=== PATIENT | female | born 1950 | race Caucasian/White ===

== ENCOUNTER → 2017-07-26 | Outpatient (CLI) | payer MEDICARE ==
[~2017-07-26] MED LIST: CITA10TA GT; GLIM2TAB PO; MIRT15TA6 PO; OMEG1CAP53 PO; PREN-115 PO
--- NOTE | 2017-07-26 14:53 | Diagnostic Imaging Report ---
EXAMINATION: Bilateral diagnostic mammogram with tomographic images also performed. The current study was also evaluated with a Computer Aided Detection (CAD) system. INDICATION: Left breast cyst. FINDINGS: The breasts are composed of heterogeneously dense parenchyma which may decrease mammographic sensitivity. A lateral left breast biopsy clip is again seen. There is a mass with smooth margins in the outer aspect of the left breast. This is stable from multiple prior exams with no adverse development. Allowing for technique and positional differences, no suspicious change is seen. IMPRESSION: Dense breasts with no definite change. ACR BI-RADS Category 2: Benign findings. Result letter will be mailed to the patient. Note: At least 10% of breast cancer is not imaged by mammography. Dictated by: Dictated on workstation # [id number]
== END ==
LOC: RAD 12:47
PROVIDERS: ATTEND Nurse Practitioner Family
DX: N60.02 Solitary cyst of left breast (principal)
CPT/HCPCS: 77066

== ENCOUNTER → 2018-09-26 | Outpatient (CLI) | payer MEDICARE ==
--- NOTE | 2018-09-26 20:19 | Diagnostic Imaging Report ---
INDICATION: Screening. EXAMINATION: Digital mammogram bilateral screening with 3-D tomosynthesis. This study was compared to prior exams of 07/26/2017, 05/25/2016 and 05/06/2015. At this time, there are no current complaints. The current study was also evaluated with a Computer Aided Detection (CAD) system. FINDINGS: The fibroglandular tissue in both breasts is heterogeneously dense. This does limit the sensitivity of this exam. Overall, there does not appear to have been any significant change when compared to the prior study. No primary or secondary sign of malignancy is noted. The stereotactic clip in the left breast seen previously is again evident and no different. IMPRESSION: There is no radiographic evidence for malignancy. ACR BI-RADS Category 1: Negative. Result letter will be mailed to the patient. Note: At least 10% of breast cancer is not imaged by mammography. Dictated by: Dictated on workstation # [id number]
== END ==
LOC: RAD 07:55
PROVIDERS: ATTEND Nurse Practitioner Family
DX: Z12.31 Encounter for screening mammogram for malignant neoplasm of breast (principal)
CPT/HCPCS: 77067

== ENCOUNTER → 2019-12-05 | Outpatient (CLI) | payer MEDICARE ==
--- NOTE | 2019-12-05 14:31 | Diagnostic Imaging Report ---
INDICATION: Screening The current study was also evaluated with a Computer Aided Detection (CAD) system. 3-D Tomographic imaging was also performed. Comparison made with prior examination of 09/26/2018, 07/26/2017, 05/25/2016. FINDINGS: The fibroglandular tissues are heterogeneously dense bilaterally. There is a focal area of marked increased parenchymal density upper outer left breast. This previously has been biopsied as there is a surgical clip in this region. There are otherwise a few scattered benign-type calcifications. There is no new dominant mass, spiculated lesion or suspicious calcification identified. Skin, nipples and axillae are unremarkable. IMPRESSION: Category 2, benign. ACR BI-RADS Category 2: Benign findings. Result letter will be mailed to the patient. Note: At least 10% of breast cancer is not imaged by mammography. Dictated by: Dictated on workstation # [id number]
== END ==
LOC: RAD 10:40
PROVIDERS: ATTEND Nurse Practitioner Family
DX: Z12.31 Encounter for screening mammogram for malignant neoplasm of breast (principal)
CPT/HCPCS: 77067

== ENCOUNTER 2022-07-17 05:39 | Outpatient (CLI) | payer MEDICARE ==
[~2022-07-17] VITALS: Ht 152.4 cm; Wt 41.0 kg
[2022-07-17] MEDS ORDERED: METF-397 PO (14:25)
[2022-07-17] MEDS ORDERED: MIRT-69 PO (14:25)
[2022-07-17] MEDS ORDERED: GLIM2TAB4 PO (14:25)
[2022-07-17] MEDS ORDERED: CITA40TA13 PO (14:25)
[2022-07-17] MEDS ORDERED: ROFL250T PO (14:25)
[2022-07-17] MEDS ORDERED: SIME80TA16 PO (14:25)
[2022-07-17] MEDS ORDERED: BUSP10TA95 PO (14:25)
[2022-07-17] MEDS ORDERED: FLT11013 IH (14:25)
[2022-07-17] MEDS ORDERED: SITA50TA PO (14:25)
[2022-07-17] MEDS ORDERED: ACET-2267 PO (14:25)
[2022-07-17] MEDS ORDERED: RT-ALBUINH IH (14:25)
[2022-07-17] MEDS ORDERED: FORM20VI IH (14:25)
== END 2022-07-17 14:35 | disposition home or self-care (01) ==
LOC: PREOP 05:39
PROVIDERS: ATTEND Specialist
DX: Z01.818 Encounter for other preprocedural examination (principal)

== ENCOUNTER 2022-07-24 09:37 | Day surgery (SDC) | payer MEDICARE ==
[~2022-07-24] VITALS: Ht 152.4 cm; Wt 41.0 kg
[~2022-07-24 09:37] MED LIST changes: +ACET-2267 PO; +BUSP10TA95 PO; +CITA40TA13 PO; +FLT11013 IH; +FORM20VI IH; +GLIM2TAB4 PO; +METF-397 PO; +MIRT-69 PO; +ROFL250T PO; +RT-ALBUINH IH; +SIME80TA16 PO; +SITA50TA PO
[2022-07-24] MEDS ORDERED: MIDAZOLAM 2 MG/2 ML (VERSED) VIAL ONE (09:45)
[2022-07-24] MEDS ORDERED: MOXIFLOXACIN OPHTH SOLN 5 MG/ML 0.3 ML SYRINGE OP ONE (10:00)
[2022-07-24] MEDS ORDERED: TIMOLOL MALEATE 0.5% 5 ML (TIMOPTIC) BTL OU PRN (10:00)
[2022-07-24] MEDS ORDERED: POVIDONE (BETADINE) OPHTH SOLN 5% 30 ML OP ONE (10:00)
[2022-07-24] MEDS: TETRACAINE 0.5% OPHTH SOLN 4 ML BTL (SINGLE DOSE ONLY) OU PRN ×4 (10:06→10:28)
[2022-07-24 10:15] VITALS: BP 151/82
[2022-07-24] MEDS: TROPICAMIDE 1% OPH SOLN (MYDRIACYL) 15 ML BTL OP SCH ×3 (10:15→10:28)
[2022-07-24] MEDS: PHENYLEPHRINE 10% OPHTH (NEO-SYN) 5 ML BTL OU SCH ×3 (10:15→10:28)
--- NOTE | 2022-07-24 10:19 | Ophthalmologist Pre-Op Note ---
Pre-Operative Progress Note H&P Reviewed The H&P was reviewed, patient examined and no changes noted. Date H&P Reviewed: Jul 24, 2022 Time H&P Reviewed: 10:19 Pre-Op Dx Cataract, Right Eye BRIAN LOYA MD Jul 24, 2022 10:19
--- NOTE | 2022-07-24 10:52 | Ophthalmology Operative Report ---
Cataract removal/placement IOL PREOPERATIVE DIAGNOSIS: Cataract Right Eye POSTOPERATIVE DIAGNOSIS: Cataract Right Eye PROCEDURE: Cataract removal and placement of posterior chamber implant, right eye SURGEON: Kenn Loya ANESTHESIA: Topical with sedation COMPLICATIONS: None ESTIMATED BLOOD LOSS: Minimal DESCRIPTION OF PROCEDURE: After proper informed consent was obtained, the patient, a 71 female, was taken to the Operating Room and the right eye was anesthetized with tetracaine. The right eye was then prepped and draped in the usual manner. A wire lid speculum was placed. A paracentesis was made at the left hand position. Preservative free lidocaine was injected into the anterior chamber followed by viscoelastic. A clear corneal incision was made in the temporal position. A capsulorrhexis was preformed and the central nuclear and cortical material were removed. The posterior capsule was polished and Mitch 22.0 AU00T0 IOL was placed into the capsular bag. The residual viscoelastic was aspirated and balanced saline solution was injected into the anterior chamber. Moxifloxacin was injected into the anterior chamber. The wound was checked and found to be water tight. The patient tolerated the procedure well without complications. KENN LOYA MD Jul 24, 2022 10:52
[2022-07-24 11:00] VITALS: BP 151/80
[2022-07-24] MEDS ORDERED: acetaZOLAMIDE ER 500 MG CAP (DIAMOX SEQUELS) PO ONE (11:30)
--- NOTE | 2022-07-24 14:04 | Anesthesia-General Post-Op ---
MAC Patient Condition Mental Status/LOC: Same as Preop Cardiovascular: Satisfactory Nausea/Vomiting: Absent Respiratory: Satisfactory Pain: Controlled Complications: Absent Post Op Complications Complications None Follow Up Care/Instructions Patient Instructions None needed. Anesthesiology Discharge Order Discharge Order Patient is doing well, no complaints, stable vital signs, no apparent adverse anesthesia problems. No complications reported per nursing. ROXANNE MCCULLOUGH CRNA Jul 24, 2022 14:04
== END 2022-07-24 11:00 | disposition home or self-care (01) ==
LOC: SDC 09:37
PROVIDERS: ATTEND Specialist
DX: E11.36 Type 2 diabetes mellitus with diabetic cataract (principal); H25.9 Unspecified age-related cataract; Z87.891 Personal history of nicotine dependence; Z79.84 Long term (current) use of oral hypoglycemic drugs
CPT/HCPCS: 66984; V2632

== ENCOUNTER 2022-07-31 13:23 | Outpatient (CLI) | payer MEDICARE | END 2022-07-31 14:53 | LOC: PREOP 13:23 | PROVIDERS: ATTEND Specialist | DX: Z01.818 Encounter for other preprocedural examination (principal) ==

== ENCOUNTER 2022-08-07 09:49 | Day surgery (SDC) | payer MEDICARE ==
[~2022-08-07] VITALS: Ht 152.4 cm; Wt 41.0 kg
[2022-08-07] MEDS ORDERED: TIMOLOL MALEATE 0.5% 5 ML (TIMOPTIC) BTL OU PRN (10:00)
[2022-08-07] MEDS ORDERED: MOXIFLOXACIN OPHTH SOLN 5 MG/ML 0.3 ML SYRINGE OP ONE (10:00)
[2022-08-07] MEDS ORDERED: POVIDONE (BETADINE) OPHTH SOLN 5% 30 ML OP ONE (10:00)
[2022-08-07 10:04] VITALS: BP 119/62
[2022-08-07] MEDS: TETRACAINE 0.5% OPHTH SOLN 4 ML BTL (SINGLE DOSE ONLY) OU PRN ×4 (10:04→10:23)
[2022-08-07] MEDS: PHENYLEPHRINE 10% OPHTH (NEO-SYN) 5 ML BTL OU SCH ×3 (10:11→10:23)
[2022-08-07] MEDS: TROPICAMIDE 1% OPH SOLN (MYDRIACYL) 15 ML BTL OP SCH ×3 (10:11→10:23)
[2022-08-07] MEDS ORDERED: MIDAZOLAM 2 MG/2 ML (VERSED) VIAL ONE (10:24)
--- NOTE | 2022-08-07 10:41 | Ophthalmologist Pre-Op Note ---
Pre-Operative Progress Note H&P Reviewed The H&P was reviewed, patient examined and no changes noted. Date H&P Reviewed: Aug 07, 2022 Time H&P Reviewed: 10:41 Pre-Op Dx Cataract, Left Eye BRIAN LOYA MD Aug 07, 2022 10:41
--- NOTE | 2022-08-07 11:00 | Ophthalmology Operative Report ---
Cataract removal/placement IOL PREOPERATIVE DIAGNOSIS: Cataract Left Eye POSTOPERATIVE DIAGNOSIS: Cataract Left Eye PROCEDURE: Cataract removal and placement of posterior chamber implant, left eye SURGEON: Kenn Loya ANESTHESIA: Topical with sedation COMPLICATIONS: None ESTIMATED BLOOD LOSS: Minimal DESCRIPTION OF PROCEDURE: After proper informed consent was obtained, the patient, a 71 female, was taken to the Operating Room and the left eye was anesthetized with tetracaine. The left eye was then prepped and draped in the usual manner. A wire lid speculum was placed. A paracentesis was made at the left hand position. Preservative free lidocaine was injected into the anterior chamber followed by viscoelastic. A clear corneal incision was made in the temporal position. A capsulorrhexis was preformed and the central nuclear and cortical material were removed. The posterior capsule was polished and an Mitch 21.5 AU00T0 was placed into the capsular bag. The residual viscoelastic was aspirated and balanced saline solution was injected into the anterior chamber. Moxifloxacin was injected into the anterior chamber. The wound was checked and found to be water tight. The patient tolerated the procedure well without complications. KENN LOYA MD Aug 07, 2022 11:00
[2022-08-07 11:05] VITALS: BP 112/61
--- NOTE | 2022-08-07 11:55 | Anesthesia-General Post-Op ---
MAC Patient Condition Mental Status/LOC: Same as Preop Cardiovascular: Satisfactory Nausea/Vomiting: Absent Respiratory: Satisfactory Pain: Controlled Complications: Absent Post Op Complications Complications None Follow Up Care/Instructions Patient Instructions None needed. Anesthesiology Discharge Order Discharge Order Patient is doing well, no complaints, stable vital signs, no apparent adverse anesthesia problems. No complications reported per nursing. POLLY MILES CRNA Aug 07, 2022 11:55
[2022-08-07] MEDS ORDERED: acetaZOLAMIDE ER 500 MG CAP (DIAMOX SEQUELS) PO ONE (12:00)
== END 2022-08-07 11:07 | disposition home or self-care (01) ==
LOC: SDC 09:49
PROVIDERS: ATTEND Specialist
DX: E11.36 Type 2 diabetes mellitus with diabetic cataract (principal); H25.9 Unspecified age-related cataract; Z87.891 Personal history of nicotine dependence; Z79.84 Long term (current) use of oral hypoglycemic drugs
CPT/HCPCS: 66984; 82947; V2632